=== PATIENT | male | born 1965 | race Caucasian/White ===

== ENCOUNTER 2019-08-04 11:08 | Inpatient (IN) ==
[2019-08-04] MEDS ORDERED: LOVENOX SUBQ SCH (14:00)
[2019-08-04] MEDS ORDERED: PROTONIX IV SCH (14:00)
[2019-08-04] MEDS ORDERED: SODIUM CHLORIDE 0.9% INJ SCH (14:00)
[2019-08-06] MEDS ORDERED: REGLAN PO PRN (10:45)
[2019-08-06 11:10] LABS: BASO# 0.02 X1000 (0.0-0.2); BASO% 0.4 % (0.0-0.8); EOS# 0.06 X1000 (0.0-0.7); EOS% 1.2 % (0.0-10.0); HEMATOCRIT 35.8 % (42.0-52.0); HEMOGLOBIN 11.7 g/dL (14.0-18.0); LYMPH# 0.65 X1000 (1.2-3.4); LYMPH% 12.6 % (20.5-51.1); MCHC 32.7 g/dL (33-37); MCV 110.2 FL (81-99); MONO# 0.55 X1000 (0.11-0.59); MONO% 10.7 % (1.7-9.3); MPV 9.2 FL (7.4-10.4); NEUT# 3.87 X1000 (1.4-6.5); NEUT% 75.1 % (42.2-75.2); PLT 262 X1000 (130-400); RBC 3.25 XMIL (4.7-6.1); RDW 19.1 % (11.5-14.5); WBC 5.15 X1000 (4.8-10.8)
--- NOTE | 2019-08-06 12:18 | Diag Imaging Result Doc PS360 ---
EXAM: CHEST-2 VIEWS 08/06/2019 HISTORY: SOB TECHNIQUE: PA and lateral chest COMMENT: There is apparent COPD. There are multiple old rib fractures. The lungs are better expanded than on 09/05/2018. There are no focal opacities. There is evidence of previous compression fracture of T12. IMPRESSION: COPD. Osteoporosis. No evidence of acute disease. Electronically signed by Kd Locke 08/06/2019 12:16 PM
[2019-08-06] MEDS: NORCO-10 PO PRN ×2 (12:34→21:29)
[2019-08-06] MEDS: NS 1,000 ML IV SCH (12:35)
[2019-08-06 13:40] LABS: AGAP 15; ALB/GLOB RATIO 0.9; ALBUMIN 2.9 g/dL (3.5-5.0); ALKALINE PHOSPHATASE 475 U/L (32-122); BUN 4 mg/dL (8-22); CALCIUM 8.6 mg/dL (8.8-10.2); CHLORIDE 97 mmol/L (98-107); CK PROFILE 18 U/L (24-204); COSMO 272; CREATININE 0.6 mg/dL (0.7-1.2); ESTIMATED GFR > 60; GLUCOSE 115 mg/dL (70-104); GOT 28 U/L (10-34); GPT 11 U/L (10-44); POTASSIUM 3.9 mmol/L (3.5-5.1); SODIUM 137 mmol/L (136-145); TCO2 25 mmol/L (25-35); TOTAL BILIRUBIN 0.68 mg/dL (0.20-1.00)
--- NOTE | 2019-08-06 19:51 | HISTORY AND PHYSICAL ---
CHIEF COMPLAINT: Dizziness, tachycardia. HISTORY OF PRESENT ILLNESS: He is a 54-year-old white gentleman who came in [place] to my office with basically low blood pressure, heart rate is 166. He was severely orthostatic. EKG showed SVT. He was dehydrated, very pale. He was new to my practice. He used to live in [place]. He is basically admitted to the hospital for IV fluids and further workup. Unfortunately, because of the holidays, he did not come until today. He continues to be orthostatic and basically IV fluids and further workup. PAST MEDICAL HISTORY: Esophageal cancer, DVT in the leg and COPD. PAST SURGICAL HISTORY: G-tube, Port-A-Cath on the right side, inguinal hernia repair, bilateral knee arthroscopy. MEDICATIONS: Lomotil, [place], Prilosec, Reglan, Xarelto, Phenergan. ALLERGIES: Not known. SOCIAL HISTORY: , 1 kid. Disabled. Lives in [place]. Smoking for 25 years. FAMILY HISTORY: Father of throat cancer at age of 70. Mom of brain cancer at the age of 68. REVIEW OF SYSTEMS: HEENT: No headache. No vision problem. No earache. No sore throat. Neck: No goiter. No lymphadenopathy. No bruit. Cardiopulmonary: Palpitations. No chest pain. Basically no shortness of breath. Port present on the right side. He also has a PEG placed on the stomach. He has esophageal cancer treating by Dr. Mendiola. No altered bowel habits, bleeding per rectum. Genitourinary: No history of hesitancy, frequency, dysuria. No swelling. Extremities: History of DVT in the legs. Neurological: No neurological problems or weakness. EXAMINATION: Vitals: Temperature is 98 degrees. His blood pressure was low upon standing. HEENT Exam: Pale. No jaundice. TMs are normal. Neck: Supple. Chest: Bilateral air entry. Heart: Sounds are tachycardic in my office. Port present on the right side. Abdomen: Belly is soft with PEG placement was done. Extremities: No peripheral edema or cyanosis. Neurologic: No obvious neurological deficits. INVESTIGATIONS: CBC: White cell count 5, hematocrit 35, platelets 262,000. SMA 7 sodium 139, potassium 3.9, chloride 97, BUN 4, creatinine 0.6, glucose 115, alkaline phosphatase 475, albumin 2.9. ASSESSMENT AND PLAN: 1. A 54-year-old white male admitted to the hospital with dizziness due to orthostatic hypotension and dehydration. Plan is IV fluids. 2. Esophageal cancer, distal esophagus, Regalado's esophagitis, and status post G-tube. Continue gastrointestinal soft diet. Consult Dr. Mendiola. 3. Deep vein thrombosis in the left leg on Xarelto. 4. History of chronic obstructive pulmonary disease, quit smoking. We will admitted as an observation. cc: Blas Moura MD
[2019-08-07] MEDS ORDERED: XARELTO PO SCH (06:00)
[2019-08-07 08:29] VITALS: BP 122/83
[2019-08-07] MEDS: NORCO-10 PO PRN (09:48)
[2019-08-07] MEDS: NS 1,000 ML IV SCH (12:25)
--- NOTE | 2019-08-08 20:35 | DISCHARGE SUMMARY ---
ADMISSION DATE: 08/06/2019 DISCHARGE DATE: 08/07/2019 DISCHARGING DIAGNOSIS: Dizziness, orthostatic hypotension due to intravascular volume depletion. SECONDARY DIAGNOSIS: 1. Deep vein thrombosis in the left leg . 2. Chronic obstructive pulmonary disease . 3. Esophageal cancer under the care of Dr. Mendiola status post Port-A-Cath on the right side status post gastrostomy tube. BRIEF HISTORY: Please see the H and P that was done on 08/06/2019. In brief he is a 54-year-old white male was seen my office as a new patient came in with dizziness and tachycardia. He was severely profoundly orthostatic. EKG showed sinus tachycardia with heart rate 150. He was looking very pale and he was admitted directly from my office for IV fluids. The patient did not go due to holidays and finally checked in, remains orthostatic. He was given 2 L of saline and followup his blood pressure was stable. LABORATORY DATA: CBC. White cell count 5.9, hematocrit 35, MCV 110, platelet count 262,000. SMA 7 is normal and alkaline phosphatase 475. Cardiac enzymes were negative. Albumin 2.9. Cortisol level 13.3. Chest x-ray stable with COPD changes with port on the right side. DISCHARGE INSTRUCTIONS: Prilosec 40 daily, [place]rrigon as needed for pain, Reglan 10 as needed for nausea, Xarelto 20 daily and follow up with Dr. Mendiola for maintenance treatment for esophageal cancer, will check his reports. cc: Jean-Claude Mendiola MD
== END 2019-08-07 10:12 | disposition home or self-care (01) | DRG 641 ==
LOC: DIRADM 11:08 → EDIPHOLD 08-06 09:41 → 4N 08-06 11:40
PROVIDERS: ADMIT Internal Medicine; ATTEND Internal Medicine